=== PATIENT | male | born 1965 | race Caucasian/White ===

== ENCOUNTER 2019-03-25 08:34 | Emergency (ER) | payer MEDICAID ==
[~2019-03-25] VITALS: Ht 167.6 cm; Wt 74.8 kg
[2019-03-25 08:41] VITALS: BP 111/76
--- NOTE | 2019-03-25 08:43 | NUR ---
Pt taken to bed 12.
--- NOTE | 2019-03-25 08:57 | NUR ---
c/o recurring lower back pain 01/17 radiating lle x 3 wks and worsening x 1 day. pt reports he has been taking Baclofen and ibuprofen with no relief. pt states his sciatic nervge is agitated. pt denies recent injury, ambulatory with steady gait. +cms. vs stable, pt alert and awake. hx--denies rx--none
--- NOTE | 2019-03-25 09:14 | NUR ---
DR REAL AT BEDSIDE.
[2019-03-25] MEDS ORDERED: DEXAMETHASONE 10 MG/ML VIAL IM ONE (09:20)
[2019-03-25] MEDS ORDERED: KETOROLAC 60 MG/2 ML VIAL IM ONE (09:20)
--- NOTE | 2019-03-25 09:39 | NUR ---
nadrs at this time.
--- NOTE | 2019-03-25 09:40 | NUR ---
Patient discharged with v/s stable. Written and verbal after care instructions given and explained sciatica. Patient alert, oriented and verbalized understanding of instructions. Ambulatory with steady gait. All questions addressed prior to discharge. ID band removed. Patient advised to follow up with PMD. Rx of motrin 800 mg/tab,tramadol 50 mg /tab given. Patient educated on indication of medication including possible reaction and side effects. Opportunity to ask questions provided and answered.Pt awake ,alert , ambulatory with steady gait.Pain level at 0. advise to take meds with food.
[2019-03-25 09:44] VITALS: BP 112/77
== END 2019-03-25 08:42 | disposition home or self-care (01) ==
LOC: MED 08:34
DX: M54.42 Lumbago with sciatica, left side (principal); G89.29 Other chronic pain
CPT/HCPCS: 96372; 99283; J1100; J1885